=== PATIENT | male | born 1970 | race Caucasian/White ===

== ENCOUNTER → 2023-05-07 | Outpatient (CLI) | payer SELFPAY ==
[~2023-05-07] MED LIST: ISOVUE-370 76% 100ML VIAL As Ordered ONE
== END ==
LOC: M RAD 15:38
PROVIDERS: ATTEND Dermatology
DX: C44.320 Squamous cell carcinoma of skin of unspecified parts of face (principal)
CPT/HCPCS: 70470; 70491; Q9967

== ENCOUNTER → 2023-05-14 | Outpatient (CLI) | payer SELFPAY | LOC: M ONCR 14:48 | PROVIDERS: ATTEND General Practice | DX: C44.321 Squamous cell carcinoma of skin of nose (principal); C77.0 Secondary and unspecified malignant neoplasm of lymph nodes of head, face and neck; F17.210 Nicotine dependence, cigarettes, uncomplicated; Z71.2 Person consulting for explanation of examination or test findings ==

== ENCOUNTER 2023-05-19 13:29 | Outpatient (RCR) | payer SELFPAY ==
[2023-05-28] MEDS ORDERED: ASPI-263 PO (08:14)
[2023-06-01] MEDS ORDERED: [UNRECOGNIZED DRUG - CODE] IV (14:27)
== END 2023-05-30 ==
LOC: M ONCR 13:29
PROVIDERS: ATTEND General Practice
DX: Z51.0 Encounter for antineoplastic radiation therapy (principal); C44.321 Squamous cell carcinoma of skin of nose

== ENCOUNTER → 2023-06-30 | Outpatient (RCR) | payer SELFPAY ==
[~2023-06-30] MED LIST changes: +ASPI-263 PO; +FLUC100T3 PO; -ISOVUE-370 76% 100ML VIAL As Ordered ONE; +TOBRSUS8 OP; +[UNRECOGNIZED DRUG - CODE] IV
== END ==
LOC: M ONCR 06-01 15:33
PROVIDERS: ATTEND General Practice
DX: Z51.0 Encounter for antineoplastic radiation therapy (principal); C44.321 Squamous cell carcinoma of skin of nose

== ENCOUNTER → 2023-07-29 | Outpatient (RCR) | payer SELFPAY ==
[~2023-07-29] MED LIST changes: +MORP1SOL5 PO
== END ==
LOC: M ONCR 07-01 13:06
PROVIDERS: ATTEND General Practice
DX: Z51.0 Encounter for antineoplastic radiation therapy (principal); C44.321 Squamous cell carcinoma of skin of nose

== ENCOUNTER 2023-08-04 12:58 | Outpatient (RCR) | payer SELFPAY ==
[2023-08-19] MEDS ORDERED: METO5TAB2 PO (13:44)
[2023-08-19] MEDS ORDERED: JUVEPOW4 PO (13:45)
[2023-08-26] MEDS ORDERED: METH25TAB PO (10:42)
== END 2023-08-29 ==
LOC: M ONCR 12:58
PROVIDERS: ATTEND General Practice
DX: Z51.0 Encounter for antineoplastic radiation therapy (principal); C44.321 Squamous cell carcinoma of skin of nose

== ENCOUNTER → 2023-08-19 | Outpatient (CLI) | payer SELFPAY ==
[~2023-08-19] MED LIST changes: +JUVEPOW4 PO; +METO5TAB2 PO
== END ==
LOC: M ONCR 12:54
PROVIDERS: ATTEND General Practice
DX: Z01.89 Encounter for other specified special examinations (principal)

== ENCOUNTER → 2023-08-26 | Outpatient (CLI) | payer SELFPAY ==
[~2023-08-26] MED LIST changes: +METH25TAB PO
== END ==
LOC: M ONCR 13:08
PROVIDERS: ATTEND General Practice
DX: L98.9 Disorder of the skin and subcutaneous tissue, unspecified (principal); Z92.3 Personal history of irradiation

== ENCOUNTER → 2023-09-16 | Outpatient (CLI) | payer SELFPAY | LOC: M ONCR 09:41 | PROVIDERS: ATTEND General Practice | DX: L59.8 Other specified disorders of the skin and subcutaneous tissue related to radiation (principal); W88.8XXA Exposure to other ionizing radiation, initial encounter; R68.2 Dry mouth, unspecified ==

== ENCOUNTER → 2023-10-29 | Outpatient (REF) | payer SELFPAY ==
[~2023-10-29] MED LIST changes: +LEVO25TA5 PO; +LEVO75TA4 PO
== END ==
LOC: M LAB REF 10:48
PROVIDERS: ATTEND Internal Medicine Endocrinology, Diabetes & Metabolism
DX: E05.80 Other thyrotoxicosis without thyrotoxic crisis or storm (principal)

== ENCOUNTER → 2023-11-09 | Outpatient (CLI) | payer SELFPAY | LOC: M ONCR 11:07 | PROVIDERS: ATTEND General Practice | DX: C44.321 Squamous cell carcinoma of skin of nose (principal); Z85.118 Personal history of other malignant neoplasm of bronchus and lung; R59.9 Enlarged lymph nodes, unspecified; F17.210 Nicotine dependence, cigarettes, uncomplicated; Z71.2 Person consulting for explanation of examination or test findings; Z88.1 Allergy status to other antibiotic agents; Z79.890 Hormone replacement therapy; Z92.3 Personal history of irradiation ==

== ENCOUNTER → 2024-02-21 | Outpatient (CLI) | payer SELFPAY ==
[2024-02-21 17:21] LABS: FREE T4 0.29 NG/DL (0.89-1.76); THYROID STIMULATING HORMONE 101.468 uIU/ML (0.55-4.78)
== END ==
LOC: M WUC 14:50
PROVIDERS: ATTEND Nurse Practitioner Family
DX: E05.80 Other thyrotoxicosis without thyrotoxic crisis or storm (principal)

== ENCOUNTER → 2024-04-18 | Outpatient (REF) | payer SELFPAY ==
[2024-04-18 18:05] LABS: THYROID STIMULATING HORMONE 81.926 uIU/ML (0.55-4.78)
[2024-04-18 18:06] LABS: FREE T4 0.39 NG/DL (0.89-1.76)
== END ==
LOC: M LABWUC 16:31
PROVIDERS: ATTEND Nurse Practitioner Family
DX: E06.3 Autoimmune thyroiditis (principal)